=== PATIENT | female | born 1960 | race Caucasian/White ===

== ENCOUNTER 2021-08-14 06:39 | Day surgery (SDC) | payer MEDICAID, SELFPAY ==
[~2021-08-14] VITALS: Ht 167.6 cm; Wt 90.7 kg
[2021-08-14] MEDS ORDERED: SIMETHICONE 40 MG/0.6 ML ML ONE (06:46)
[2021-08-14] MEDS: MIDAZOLAM HCL 5 MG/5 ML VIAL ONE ×6 (07:55→08:20)
[2021-08-14] MEDS: MEPERIDINE 100 MG INJ. 100 MG/ML VIAL ONE ×3 (07:55→08:20)
[2021-08-14 10:18] VITALS: BP_SYST 86
== END 2021-08-14 09:45 | disposition home or self-care (01) ==
LOC: SDS 06:39 → SMU 06:40 → SDS 09:45
PROVIDERS: ATTEND Internal Medicine Gastroenterology
DX: D50.9 Iron deficiency anemia, unspecified (principal); R19.5 Other fecal abnormalities; K63.5 Polyp of colon; K21.00 Gastro-esophageal reflux disease with esophagitis, without bleeding; K29.50 Unspecified chronic gastritis without bleeding; K44.9 Diaphragmatic hernia without obstruction or gangrene; K57.30 Diverticulosis of large intestine without perforation or abscess without bleeding; K64.8 Other hemorrhoids; E11.9 Type 2 diabetes mellitus without complications; E78.00 Pure hypercholesterolemia, unspecified; I10 Essential (primary) hypertension; Z80.0 Family history of malignant neoplasm of digestive organs; Z79.899 Other long term (current) drug therapy; Z20.822 Contact with and (suspected) exposure to COVID-19
CPT/HCPCS: 36415; 43239; 45380; 82962; 87081; 88305; 88312; 88313; 99152; 99153; G0378; J2175; J2250; U0003; 45385